=== PATIENT | male | born 2000 | race Caucasian/White ===

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

== ENCOUNTER 2018-03-23 13:07 | Emergency (ER) | payer OTHER ==
[~2018-03-23] VITALS: Ht 175.3 cm; Wt 68.0 kg
[~2018-03-23 13:07] MED LIST changes: +CLARITIN10 MG PO; +NAPROSYN500 MG PO; +TYLENOL325 MG PO
[2018-03-23 13:13] VITALS: BP 138/87
[2018-03-23] MEDS ORDERED: PROAIR HFA8.5 GM INH (13:15)
[2018-03-23] MEDS ORDERED: IBU600 MG PO (13:23)
[2018-03-23] MEDS ORDERED: PENICILLIN VK500 MG PO (13:23)
== END 2018-03-23 13:39 | disposition home or self-care (01) ==
LOC: M.ERS 13:07
DX: S02.5XXA Fracture of tooth (traumatic), initial encounter for closed fracture (principal); J45.909 Unspecified asthma, uncomplicated; X58.XXXA Exposure to other specified factors, initial encounter; Y93.89 Activity, other specified; Y92.89 Other specified places as the place of occurrence of the external cause; Y99.8 Other external cause status

== ENCOUNTER 2018-03-27 01:20 | Emergency (ER) | payer OTHER ==
[~2018-03-27] VITALS: Ht 175.3 cm; Wt 68.0 kg
[~2018-03-27 01:20] MED LIST changes: +IBU600 MG PO; +PENICILLIN VK500 MG PO; +PROAIR HFA8.5 GM INH
[2018-03-27] MEDS ORDERED: CLEOCIN HCL150 MG PO (02:06)
[2018-03-27] MEDS ORDERED: HYDROCODON-ACE1 EAC8 PO (02:06)
[2018-03-27 02:30] VITALS: BP 132/81
== END 2018-03-27 02:30 | disposition home or self-care (01) ==
LOC: M.ERS 01:20
DX: K04.7 Periapical abscess without sinus (principal); J45.909 Unspecified asthma, uncomplicated

== ENCOUNTER 2019-01-27 11:30 | Emergency (ER) | payer OTHER ==
[~2019-01-27] VITALS: Ht 175.3 cm; Wt 65.8 kg
[~2019-01-27 11:30] MED LIST changes: +CLEOCIN HCL150 MG PO; +HYDROCODON-ACE1 EAC8 PO
[2019-01-27 12:08] LABS: ABSOLUTE EOSINOPHILS 0.1 thou/uL (0.0-0.7); ABSOLUTE LYMPHOCYTES 1.9 thou/uL (0.8-5.3); ABSOLUTE MONOCYTES 0.5 thou/uL (0.0-1.2); ABSOLUTE NEUTROPHILS 3.1 thou/uL (1.6-8.1); BASOPHILS 0.6 %; EOSINOPHILS 1.8 %; HEMATOCRIT 42.2 % (42.0-52.0); HEMOGLOBIN 14.7 gm/dL (14.0-18.0); LYMPHOCYTES 34.2 %; MCH 29.6 pg (26.0-34.0); MCHC 34.7 g/dL (28.0-37.0); MCV 85.1 fL (80.0-100.0); MONOCYTES 8.8 %; NUCLEATED RBCS 0 /100WBC; PLATELET COUNT* 283 thou/uL (150-400); POLYS 54.6 %; RBC 4.96 mil/uL (4.50-6.00); RDW-CV 12.8 % (10.5-14.5); WBC 5.7 thou/uL (4.0-11.0)
[2019-01-27 12:11] LABS: CALCIUM 9.7 mg/dL (8.5-10.1); CREATININE 1.1 mg/dL (0.6-1.3); POTASSIUM 3.2 mmol/L (3.5-5.1)
[2019-01-27 12:15] LABS: ALBUMIN 4.8 g/dL (3.4-5.0); TOTAL BILIRUBIN 1.1 mg/dL (<0.1-1.0); TOTAL PROTEIN 8.1 g/dL (6.4-8.2)
[2019-01-27 13:27] LABS: AMP/METHAMP Negative (Negative); BARBITURATES Negative (Negative); BENZODIAZEPINES Negative (Negative); COCAINE Negative (Negative); METHADONE Negative (Negative); OPIATES Negative (Negative); PCP Negative (Negative); THC POSITIVE (Negative)
[2019-01-27] MEDS ORDERED: ZOFRAN4 MG PO (13:39)
[2019-01-27 13:59] VITALS: BP 122/79
--- NOTE | 2019-01-28 12:48 | EKG ---
[place] [address] ELECTROCARDIOGRAM REPORT Name: ZAKURT RAMOS [id number] Admission: 01/27/19 Attend Phys: Discharge: 01/27/19 Date of : [birth year] Report #: [id number] THIS REPORT FOR: //name// [facility] ED Test Date: 2019-01-27 Test Time: 12:35:21 Pat Name: KURT MENDENHALL Department: Room: Gender: M [employer] Operator: EV : 2000 Requested By: Katarina Briones Order Number: [id number] MD: Malik Ordoñez Measurements Intervals [place] Rate: 64 P: 75 LA: 119 QRS: 84 QRSD: 118 T: 51 QT: 439 QTc: 453 Interpretive Statements Unknown rhythm, irregular rate Borderline short LA interval Incomplete right bundle branch block No previous ECG available for comparison Electronically Signed On 01-28-2019 12:48:13 CDT by Malik Ordoñez [email or web address] <ELECTRONICALLY SIGNED> By: Malik Ordoñez MD, [facility] 01/28/19 1248 1235 1235 Malik Ordoñez MD, FACC /EPI
== END 2019-01-27 14:00 | disposition home or self-care (01) ==
LOC: M.ERS 11:30
PROVIDERS: Nurse Practitioner Family
DX: R11.2 Nausea with vomiting, unspecified (principal); R19.7 Diarrhea, unspecified; J45.909 Unspecified asthma, uncomplicated

== ENCOUNTER 2020-12-30 19:45 | Emergency (ER) | payer OTHER ==
[~2020-12-30] VITALS: Ht 175.3 cm; Wt 59.0 kg
[~2020-12-30 19:45] MED LIST changes: +ZOFRAN4 MG PO
[2020-12-30 20:10] LABS: URINE BILIRUBIN NEGATIVE (Negative); URINE BLOOD NEGATIVE (Negative); URINE COLOR YELLOW; URINE GLUCOSE-RANDOM 2+ (Negative); URINE KETONES TRACE (Negative); URINE LEUKOCYTES-REFLEX 1+ (Negative); URINE NITRITE-REFLEX NEGATIVE (Negative); URINE PROTEIN NEGATIVE (Negative)
[2020-12-30 20:19] LABS: URINE CLARITY HAZY
[2020-12-30 20:39] LABS: CASTS None Seen /LPF (None Seen); MUCUS None Seen strn/LPF (None Seen); SQUAMOUS 0-3 Few /LPF (0-3)
[2020-12-30 20:40] LABS: BACTERIA-REFLEX 1-9 Few /HPF (None Seen); CRYSTALS None Seen /LPF (None Seen); URINE RBC None Seen /HPF (0-2); URINE WBC-REFLEX 6-15 Few /HPF (0-5)
[2020-12-31 00:39] LABS: HEMATOCRIT 39.2 % (42.0-52.0); HEMOGLOBIN 13.4 gm/dL (14.0-18.0); MCH 29.3 pg (26.0-34.0); MCHC 34.2 g/dL (28.0-37.0); MCV 85.6 fL (80.0-100.0); MPV 7.1 fl. (7.2-11.1); NUCLEATED RBCS 0 /100WBC; PLATELET COUNT* 216 thou/uL (150-400); RBC 4.58 mil/uL (4.50-6.00); RDW-CV 13.3 % (10.5-14.5); WBC 6.4 thou/uL (4.0-11.0)
[2020-12-31 00:49] LABS: CALCIUM 9.5 mg/dL (8.5-10.1); CREATININE 0.9 mg/dL (0.6-1.3); POTASSIUM 4.8 mmol/L (3.5-5.1)
[2020-12-31 00:54] LABS: ALBUMIN 4.4 g/dL (3.4-5.0); TOTAL BILIRUBIN 0.6 mg/dL (<0.1-1.0)
[2020-12-31 01:14] LABS: AMP/METHAMP Negative (Negative); BARBITURATES Negative (Negative); BENZODIAZEPINES Negative (Negative); COCAINE Negative (Negative); METHADONE Negative (Negative); OPIATES Negative (Negative); PCP Negative (Negative); THC Negative (Negative)
[2020-12-31] MEDS ORDERED: CEPHALEXIN500 MG PO ×2 (01:20)
[2020-12-31 01:45] VITALS: BP 141/66
[2020-12-31 02:46] LABS: ABSOLUTE LYMPHOCYTES 0.4 thou/uL (0.8-5.3); PLATELET ESTIMATE ADEQUATE
== END 2020-12-31 01:46 | disposition home or self-care (01) ==
LOC: M.ERS 19:45
PROVIDERS: Personal Emergency Response Attendant
DX: N39.0 Urinary tract infection, site not specified (principal); J45.909 Unspecified asthma, uncomplicated; G43.909 Migraine, unspecified, not intractable, without status migrainosus; R73.9 Hyperglycemia, unspecified

== ENCOUNTER 2020-12-31 15:15 | Emergency (ER) | payer OTHER ==
[~2020-12-31] VITALS: Ht 175.3 cm; Wt 56.7 kg
[~2020-12-31 15:15] MED LIST changes: +CEPHALEXIN500 MG PO
[2020-12-31 15:40] VITALS: BP 93/50
== END 2020-12-31 15:41 | disposition home or self-care (01) ==
LOC: M.ERS 15:15
DX: J45.909 Unspecified asthma, uncomplicated (principal); R73.9 Hyperglycemia, unspecified; G43.909 Migraine, unspecified, not intractable, without status migrainosus; Z90.89 Acquired absence of other organs